=== PATIENT | male | born 1975 ===

== ENCOUNTER 2016-06-21 03:46 | Emergency (ER) | payer SELFPAY ==
[2016-06-21 03:46] VITALS: BMI 23.1
[2016-06-21 03:59] VITALS: BP 122/83; PULSE 72; RESP 17; TEMP 98.1; O2SAT 98
[2016-06-21] MEDS ORDERED: Promethazine 6.25 MG/5 ML CUP ONE (04:26)
[2016-06-21] MEDS ORDERED: Promethazine 12.5 mg/10 ml Syrup PO STA (04:30)
--- NOTE | 2016-06-21 04:41 | ED PDOC ---
HPI: CCC, URI, Sore Throat Time Seen by Provider: 06/21/16 03:55 Chief Complaint (Nursing): Cough, Cold, Congestion Chief Complaint (Provider): cough History Per: Patient History/Exam Limitations: no limitations Have you had recent travel within the past 21 days to any of the following countries: [place], [place], [place] or [place]?: No Onset/Duration Of Symptoms: Days (5) Current Symptoms Are (Timing): Still Present Additional Complaint(s): 41yo male presents to the ED with c/o cough x 5 days. Patient reports he initially had sore throat and body aches, but those symptoms have since resolved. Cough is worse at night and when lying down. Patient feels like there is a dry spot in the back of his throat causing him to cough. Patient is a non- smoker and denies fevers. Past Medical History Reviewed: Historical Data, Nursing Documentation, Vital Signs Vital Signs: Last Vital Signs Temp 98.1 F 06/21/16 03:55 Pulse 72 06/21/16 03:55 Resp 17 06/21/16 03:55 BP 122/83 06/21/16 03:55 Pulse Ox 98 06/21/16 03:55 - Medical History PMH: Kidney Stones - Surgical History Surgical History: No Surg Hx - Family History Family History: States: No Known Family Hx - Social History Current smoker - smoking cessation education provided: No - Immunization History Hx Tetanus Toxoid Vaccination: No Hx Influenza Vaccination: No Hx Pneumococcal Vaccination: No - Home Medications Home Medications: Ambulatory Orders Medication Instructions Recorded Aleve 2 tab PO Q8 09/10/15 Cyclobenzaprine [Cyclobenzaprine 10 mg PO BID PRN #15 tab 09/10/15 HCl] Benzonatate [Tessalon Perle] 100 mg PO TID #20 capsule 06/21/16 predniSONE [predniSONE Tab] 60 mg PO DAILY #9 tab 06/21/16 - Allergies Allergies/Adverse Reactions: Allergies Allergy/AdvReac Type Severity Reaction Status Date / Time No Known Allergies Allergy Verified 09/10/15 13:20 Review of Systems ROS Statement: Except As Marked, All Systems Reviewed And Found Negative Constitutional: Positive for: Other (body aches since resolved ). Negative for : Fever ENT: Positive for: Throat Pain (resolved ) Respiratory: Positive for: Cough Physical Exam - Reviewed Nursing Documentation Reviewed: Yes Vital Signs Reviewed: Yes - Physical Exam Appears: Positive for: Well, No Acute Distress Head Exam: Positive for: ATRAUMATIC, NORMAL INSPECTION, NORMOCEPHALIC Skin: Positive for: Normal Color, Warm, Dry Eye Exam: Positive for: Normal appearance, EOMI, PERRL ENT: Positive for: Normal ENT Inspection Neck: Positive for: Normal, Painless ROM, Supple Cardiovascular/Chest: Positive for: Regular Rate, Rhythm. Negative for: Murmur , Tachycardia Respiratory: Positive for: Normal Breath Sounds. Negative for: Wheezing, Respiratory Distress Gastrointestinal/Abdominal: Positive for: Normal Exam, Bowel Sounds, Soft. Negative for: Tenderness Back: Positive for: Normal Inspection. Negative for: L CVA Tenderness, R CVA Tenderness Extremity: Positive for: Normal ROM. Negative for: Deformity, Swelling Neurologic/Psych: Positive for: Alert, Oriented - ECG O2 Sat by Pulse Oximetry: 98 Pulse Ox Interpretation: Normal (RA) Medical Decision Making Medical Decision Makin: Impression: non-infectious cough Plan: Phenergan 12.5mg PO, Tessalon 100mg PO, Prednisone 60mg PO Patient is stable for d/c. Scribe Attestation: Documented by Rupinder Hunter acting as a scribe for Raphael Lord MD. Provider Scribe Attestation: All medical record entries made by the Scribe were at my direction and personally dictated by me. I have reviewed the chart and agree that the record accurately reflects my personal performance of the history, physical exam, medical decision making, and the department course for this patient. I have also personally directed, reviewed, and agree with the discharge instructions and disposition. Disposition - Clinical Impression Clinical Impression: Cough - Patient ED Disposition Is Patient to be Admitted: No - Disposition Referrals: [facility] [Outside] Disposition: Routine/Home Disposition Time: 04:38 Condition: STABLE Prescriptions: Benzonatate [Tessalon Perle] 100 mg PO TID #20 capsule predniSONE [predniSONE Tab] 60 mg PO DAILY #9 tab Instructions: Acute Cough (ED)
== END 2016-06-21 04:40 | disposition home or self-care (01) ==
LOC: H.ER 03:46
DX: J02.9 Acute pharyngitis, unspecified (principal); R05 Cough